=== PATIENT | male | born 1975 | race Caucasian/White ===

== ENCOUNTER 2018-06-25 05:46 | Inpatient (IN) | payer OTHER ==
[2018-06-25] VITALS (18 sets, daily range): BP systolic 78–122; BP diastolic 42–75
[~2018-06-25] VITALS: Ht 180.3 cm; Wt 80.7 kg
[~2018-06-25 05:46] MED LIST: NKM
[2018-06-25] MEDS ORDERED: Pantoprazole Inj ONE (06:25)
[2018-06-25] MEDS ORDERED: Vancomycin 1gm vial IVPB ONE (06:26)
[2018-06-25] MEDS ORDERED: Rocuronium Bromide 50mg/5ml Inj IV ONE (06:26)
[2018-06-25] MEDS ORDERED: Sodium Chloride 10ml vial INJ ONE ×2 (06:29→10:37)
[2018-06-25] MEDS ORDERED: Midazolam 2mg/2ml Inj IVP PRN (07:00)
[2018-06-25] MEDS ORDERED: oxyCODONE HCL/Acetaminophen 5/325mg ORAL PRN (07:00)
[2018-06-25] MEDS ORDERED: fentaNYL 100 mcg/2 mL IV PRN (07:00)
[2018-06-25] MEDS ORDERED: LORazepam Inj 2mg/ml 1ml IV PRN (07:00)
[2018-06-25] MEDS ORDERED: Ketorolac 30mg Inj IV PRN ×2 (07:00)
[2018-06-25] MEDS ORDERED: LR 1000ml 1,000 ML IVLG SCH (07:00)
[2018-06-25] MEDS ORDERED: DiphenhydrAMINE 50mg/ml Inj IVP PRN (07:00)
[2018-06-25] MEDS ORDERED: HYDROcodone/Acetamin 5/325 tab ORAL PRN ×2 (07:00→14:00)
[2018-06-25] MEDS ORDERED: Acetaminophen (Non formulary) 100 ML IV ONE (07:00)
[2018-06-25] MEDS ORDERED: HYDROcodone/Acetamin 7.5/325 tab ORAL PRN ×2 (07:00→14:00)
[2018-06-25] MEDS ORDERED: Meperidine 50mg/ml Inj(FOR RIGORS ONLY) IVP PRN (07:00)
[2018-06-25] MEDS ORDERED: Atropine Sulfate 0.4mg/ml inj IVP PRN (07:00)
[2018-06-25] MEDS ORDERED: Hydromorphone 0.5mg/0.5ml inj IVP PRN (07:00)
[2018-06-25] MEDS ORDERED: Metoclopramide 10mg/2ml Inj IVP PRN (07:00)
--- NOTE | 2018-06-25 07:06 | Anethesia Preoperative Eval ---
Anesthesia Pre-op PMH/ROS General Date of Evaluation: Jun 25, 2018 Time of Evaluation: 07:41 Anesthesiologist: Krystian ASA Score: ASA 2 Mallampati Score Class I : Soft palate, uvula, fauces, pillars visible Class II: Soft palate, uvula, fauces visible Class III: Soft palate, base of uvula visible Class IV: Only hard plate visible Mallampati Classification: Class II Surgeon: Ford Diagnosis: Neck Pain Surgical Procedure: ACDF C5-T1 Anesthesia History: none Family History: no anesthesia problems Allergies: Coded Allergies: No Known Allergies (Unverified , 06/24/18) Medications: see eMAR Patient NPO?: Yes NPO Date: Jun 24, 2018 NPO Time: 1800 Past Medical History 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 Exam Physician Exam Last Vital Signs Date Time Temp Pulse Resp B/P (MAP) Pulse Ox O2 Delivery O2 Flow Rate FiO2 06/25/18 06:45 97.8 77 20 112/75 (87) 99 06/25/18 06:17 Room Air Constitutional: NAD Neurologic: CN 2-12 intact Cardiovascular: RRR Respiratory: CTA Gastrointestinal: S/NT/ND Airway Exam Mallampati Score: Class II MO: full ROM: limited Teeth: intact Anesthesia Pre-op A/P Risk Assessment & Plan Assessment: ASA 2 Plan: GA, SED, GlideScope Go Status Change Before Surgery: No Pre-Antibiotics Dru Gram Vancomycin IV Given Within 1 Hr of Incision: Yes Time Given: 07:56 Dustin Barnett MD Jun 25, 2018 07:06
--- NOTE | 2018-06-25 07:07 | Immediate Post-Op Evaluation ---
Immediate Post-Op Evalulation Immediate Post-Op Evalulation Procedure: ACDF C5-T1 Date of Evaluation: Jun 25, 2018 Time of Evaluation: 13:35 IV Fluids: 700 LR Blood Products: 0 Estimated Blood Loss: 150 Urinary Output: 450 Blood Pressure Systolic: 117 Blood Pressure Diastolic: 65 Pulse Rate: 81 Respiratory Rate: 16 O2 Sat by Pulse Oximetry: 97 Temperature (Fahrenheit): 97.5 Pain Score (1-10): 2 Nausea: No Vomiting: No Complications Tongue Laceration with soft bite block in place. Repaired in OR. Patient Status: awake, reacts, patent, extubated, none Hydration Status: adequate Dru Gram Vancomycin IV Given Within 1 Hr of Incision: Yes Time Given: 07:56 Dustin Barnett MD Jun 25, 2018 07:07
[2018-06-25] MEDS ORDERED: Lidocaine 1% MPF 10mg/ml 5ml ONE ×2 (07:11→12:32)
[2018-06-25] MEDS ORDERED: Dexamethasone 4mg/ml vial ONE (07:11)
[2018-06-25] MEDS ORDERED: Lidocaine 1% Plain 30 ml INJ ONE ×3 (07:14→10:51)
[2018-06-25] MEDS ORDERED: Thrombin 5000 units TOPIC ONE (07:16)
[2018-06-25] MEDS ORDERED: Bupivacaine w/Epi 0.5% 30ml Vial INJ ONE (07:16)
[2018-06-25] MEDS ORDERED: Heparin 1000 units/ml 1ml Vial ONE (07:16)
[2018-06-25] MEDS ORDERED: Gelfoam Size TOPIC ONE (07:16)
[2018-06-25] MEDS ORDERED: Bacitracin 50000 Units Vial ONE (07:17)
[2018-06-25] MEDS ORDERED: Neostigmine 1mg/ml 10ml Inj ONE (07:45)
[2018-06-25] MEDS ORDERED: Propofol 1,000mg/ 100ml btl IV ONE (07:45)
[2018-06-25] MEDS ORDERED: LR 1000ml ONE (07:45)
--- NOTE | 2018-06-25 07:46 | Pre-Procedure Note/Attestation ---
Pre-Procedure Note/Attestation Complete Prior to Procedure Planned Procedure: bilateral Procedure Narrative: Anterior Cervical discectomy with interbody graft and arthrodesis with instrumentation at C56, C67 and C7-T1 with allograft, autograft and iliac crest bone marrow aspirate. Attestation I attest that I discussed the nature of the procedure; its benefits; risks and complications; and alternatives (and the risks and benefits of such alternatives ), prior to the procedure, with the patient (or the patient's legal patient services representative). I attest that, if there was a reasonable possibility of needing a blood transfusion, the patient (or the patient's legal patient services representative) was given the [place] [employer] standardized written summary, pursuant to the Jeb Ranjana Blood Safety Act ([place] Health and Safety Code # 1645, as amended). I attest that I re-evaluated the patient just prior to the surgery and that there has been no change in the patient's H&P, except as documented below: Prema Youngblood MD Jun 25, 2018 07:46
[2018-06-25] MEDS ORDERED: Bacitracin Oint 15gm Tube TOPIC ONE (08:00)
[2018-06-25] MEDS ORDERED: Vancomycin 500mg/D5W 110ml IVPB SCH ×2 (08:00)
[2018-06-25] MEDS ORDERED: Vancomycin 1gm/D5W 275ml IVPB ONE ×2 (08:00)
[2018-06-25] MEDS ORDERED: fentaNYL 100 mcg/2 mL IV ONE ×2 (08:21→10:59)
[2018-06-25] MEDS ORDERED: Pantoprazole Inj IVP ONE (11:00)
[2018-06-25] MEDS ORDERED: Glycopyrrolate 0.2mg/ml 1ml Vial ONE (11:54)
[2018-06-25] MEDS ORDERED: Naloxone 0.4mg/ml Inj ONE (12:32)
--- NOTE | 2018-06-25 12:51 | Diagnostic Imaging Report ---
INDICATION: Pain, intraoperative TECHNIQUE: Intraoperative imaging Fluoroscopy time: 34 seconds Total dose: 0.20411 mGym2 Total number of images: 6 COMPARISON: None FINDINGS: Intraoperative images demonstrates paper clip projected over the C5-6 disc. Subsequent images demonstrate surgical tool's projected anterior to C5-6 and C6-7 discs. Subsequent images demonstrate anterior fusion extending from C5 through T1 with intervening disc spacers IMPRESSION: Intraoperative imaging, as described
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
[2018-06-25] MEDS ORDERED: Milk of Magnesia 30ml Ud ORAL PRN (14:00)
[2018-06-25] MEDS ORDERED: Albuterol ud Inhalation ONE (14:12)
[2018-06-25] MEDS ORDERED: Albuterol/Ipratropium 3ml neb HHN SCH (14:17)
[2018-06-25] MEDS ORDERED: Piperacillin/Tazobactam 3.375 GM in D5W 110 ML IVPB SCH (15:00)
--- NOTE | 2018-06-25 15:02 | General Progress Note ---
Progress Note Progress Note Nuerosurgery Post-op S/ Comfortable. O/ Vs Sat 99% on FM Last 24 Hour Vital Signs Date Time Temp Pulse Resp B/P (MAP) Pulse Ox O2 Delivery O2 Flow Rate FiO2 06/25/18 14:35 95 16 104/64 97 Non-Rebreather 10 06/25/18 14:30 94 16 104/64 96 Simple Mask 10 06/25/18 14:15 94 16 105/68 96 Simple Mask 10 06/25/18 14:00 94 16 105/68 96 Simple Mask 10 06/25/18 13:45 88 16 104/65 96 Simple Mask 10 06/25/18 13:34 82 16 102/66 96 Simple Mask 10 06/25/18 13:31 81 16 97 06/25/18 13:29 79 16 104/66 96 Simple Mask 10 06/25/18 13:24 97.5 80 16 117/65 96 Simple Mask 10 06/25/18 06:45 97.8 77 20 112/75 (87) 99 06/25/18 06:17 Room Air Alert and oriented x 4 Moves all extremities well in c-collar Incisions are clean dry and intact right side of the tongue mild swelling no bleeding labs: ABG 7.299/pco2 7.45/Pao2 92 C-XR no pneumothorax. Infiltrate vs mass R upper/middle...reviewed with radiologist and press cleaner Cardio-resp stable. Received breathing treatment 99% saturation and fully oriented .. pt will be monitored in ICU Post-op IV Abx continue hung Patient family were updated several times by myself and Dr. Baca. Prema Youngblood MD Jun 25, 2018 15:02
[2018-06-25 15:14] LABS: ANION GAP 11 mmol/L (5-15); BLOOD UREA NITROGEN 23 mg/dL (7-18); CALCIUM 8.9 MG/DL (8.5-10.1); CARBON DIOXIDE 22 MMOL/L (21-32); CHLORIDE 104 MMOL/L (98-107); CREATININE 1.5 MG/DL (0.55-1.30); POTASSIUM 5.2 MMOL/L (3.5-5.1); SODIUM 137 MMOL/L (136-145)
[2018-06-25] MEDS: HYDROmorphone 1mg/ml Carpuject IVP PRN (15:45)
[2018-06-25] MEDS ORDERED: NS w/KCl 20mEq 1000ml 1,000 ML IV SCH (16:00)
--- NOTE | 2018-06-25 16:50 | Diagnostic Imaging Report ---
Indication: Postoperative shortness of breath Technique: One view of the chest Comparison: none Findings: Interstitial and airspace opacities are seen throughout the right midlung, extending slightly cephalad and inferior. A denser triangular opacity is seen in the right suprahilar region, measuring approximately 6.4 x 4.67 m. There is equivocal minimal interstitial prominence on the left. The pleural spaces are clear. The heart size is normal. There is evidence of prior cervical spine fusion surgery Impression: Interstitial and airspace opacities in the right lung. Given stated clinical history, could represent aspiration pneumonia, among other possibilities Right suprahilar opacity, likely reflecting dense consolidation but mass also possible. Recommend follow-up chest radiographs to resolution, consider CT should lesion failed to resolve Other findings as noted. Findings discussed by phone with Dr. Youngblood previously
--- NOTE | 2018-06-25 17:00 | NUR ---
NURSE NOTES: Report received from Dr Youngblood and Kandi RN. Pt sleepy but arousable, alert and oriented x3 and able to make needs known. Pt on monitoring tech, ST. Pt on 100% non-rebreather. Surgical incision on neck with soft cervical neck collar noted and intact. Dressing dry and not bleeding. Left hip dressing intact. Left 18 G IV intact. Tsai noted with clear yellow urine draining to gravity. Safety measures in place with bed locked and in lowest position and side rails x2 up. Will continue to monitor and continue plan of care.
[2018-06-25] MEDS: HYDROcodone/Acetamin 7.5/325 tab ORAL PRN ×2 (17:07→22:24)
[2018-06-25] MEDS: Docusate Sod/Senna tab ORAL SCH (17:43)
[2018-06-25] MEDS: Docusate 100mg cap ORAL SCH (17:43)
--- NOTE | 2018-06-25 18:58 | NUR ---
NURSE NOTES: Spoke to Dr Youngblood and Dr Baca regarding pt potassium level 5.2. Dr ordered to change IV fluid to plain NS. Will continue to monitor.
--- NOTE | 2018-06-25 19:14 | NUR ---
HAND-OFF: Report given to Jalen BULL.
--- NOTE | 2018-06-25 19:30 | NUR ---
NURSE NOTES: Received pt in no acute distress. Awake, alert, orientedx4; Moves all extremities. S/p Cervical spine fusion C5-T1 done earlier today. Pt on high gilbert's position; denies pains; denies SOB. On 100NRBM, saturating 98%. Chest sounds clear with diminished air entry at bases. 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 PIV site on left hand intact; IVF of NS infusing at 100ml/h. Afebrile; ST on the monitor, rate in the low 100's; Bilat SCD's on.FC patent; draining good amts of urine. Will continue to monitor respiratory status and address pain issues. Plan of care explained.
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
--- NOTE | 2018-06-25 20:00 | History and Physical Report ---
INTERNAL MEDICINE NOTE PATIENT SEEN IN PACU. DATE OF ADMISSION: 06/25/2018 HISTORY OF PRESENT ILLNESS: I was asked to evaluate the patient postop. This unfortunate male was admitted to the hospital to undergo anterior cervical diskectomy and fusion. The patient underwent surgery without any difficulty. Postoperatively, we noted that there was slight tongue laceration. On exam, it was bleeding and had a slight desaturation. He noted to have a right-sided infiltrate and haziness. No significant congestive heart failure. The patient was given oxygen and titrated to keep saturation greater than 94%. We started on vanc and Zosyn for possible aspiration pneumonitis. He was planning to be transferred to intensive care unit. EKG will be ordered on the patient. Chest x-ray will be followed monthly on this patient and the patient will get a CT of the chest. [facility] see my preop note. PHYSICAL EXAMINATION: VITAL SIGNS: Blood pressure 116/72, heart rate was 90, and saturation was 96% on 40% FiO2. NECK: Covered wiht neck brace HEART: S1 and S2. Regular rate. LUNGS: Left base has slight crackle. Right base have crackles throughout. ABDOMEN: Soft. Positive bowel sounds. EXTREMITIES: No clubbing or cyanosis. NEUROLOGICAL: He is alert and oriented and moves both of the lower extremities and upper extremity. IMPRESSION: 1. Status post anterior cervical diskectomy and fusion with likely aspiration pneumonitis. 2. Vancomycin as well as on Zosyn to cover for aspiration pneumonia. Oxygen will be given to the patient. If the patient desaturates, we will put for BiPAP and BiPAP has been placed by the bedside. If the patient worsens, BiPAP will be given to the patient. We will monitor the patient closely. 3. IV fluids will be given to the patient. IV antibiotics with vancomycin and Zosyn. 4. Pain medication with Dilaudid. Monitor the patient closely in intensive care unit. DVT prophylaxis with SCD. NPO for now except for medications. Case discussed with Dr. Youngblood. and the anesthesiologist. Kd Baca M.D. : ANIL JOB#: [id number] CC: Prema Youngblood M.D.; Fax#: [phone] [facility] HOSPITALJose De Jesus
[2018-06-25] MEDS: Vancomycin 1 GM in D5W 275 ML IVPB SCH (20:21)
--- NOTE | 2018-06-25 20:51 | Cardiology Progress Note ---
Assessment/Plan Status Narrative venous duouplex no DVT ekg reveiwed troponin is reveiwed will follow Assessment/Plan s/p cervical spine fusion post op hypoxia has aspiration pneumonia right sided infiltrate plan antibiotic for asp pneumonia vanco zosyn follow renal parameters incentive spirometry oxygen supplemnent atrovent HHN suction prn if worsen can place him on bipap but looks good for now ceck labs serial troponin antibiotic for asp pneumonia vanco zosyn follow renal parameters dvt prophyalxis Subjective Subjective doing well Objective Last 24 Hour Vital Signs Date Time Temp Pulse Resp B/P (MAP) Pulse Ox O2 Delivery O2 Flow Rate FiO2 06/25/18 20:13 Venturi Mask 4.0 31 06/25/18 20:13 94 Venturi Mask 4.0 31 06/25/18 19:00 98 30 115/70 (85) 98 06/25/18 18:00 108 29 102/71 (81) 95 06/25/18 18:00 Non-Rebreather 15.0 Non-Rebreather 15.0 Non-Rebreather 15.0 Non-Rebreather 15.0 06/25/18 17:00 112 26 78/42 (54) 96 06/25/18 16:30 Non-Rebreather 15.0 Non-Rebreather 15.0 Non-Rebreather 15.0 Non-Rebreather 15.0 06/25/18 16:00 98.0 103 27 96/70 (79) 96 06/25/18 14:45 97.0 98 16 122/70 96 Non-Rebreather 10 06/25/18 14:35 95 16 104/64 97 Non-Rebreather 10 06/25/18 14:30 94 16 104/64 96 Simple Mask 10 06/25/18 14:15 94 16 105/68 96 Simple Mask 10 06/25/18 14:00 94 16 105/68 96 Simple Mask 10 06/25/18 13:45 88 16 104/65 96 Simple Mask 10 06/25/18 13:34 82 16 102/66 96 Simple Mask 10 06/25/18 13:31 81 16 97 06/25/18 13:29 79 16 104/66 96 Simple Mask 10 06/25/18 13:24 97.5 80 16 117/65 96 Simple Mask 10 06/25/18 06:45 97.8 77 20 112/75 (87) 99 06/25/18 06:17 Room Air Neck: no JVD Cardiovascular: normal rate, regular rhythm Respiratory/Chest: lungs clear Abdomen: soft Laboratory Tests Test 06/25/18 14:40 06/25/18 14:45 Arterial Blood pH 7.299 (7.350-7.450) Arterial Blood Partial Pressure CO2 45.4 mmHg (35.0-45.0) H Arterial Blood Partial Pressure O2 92.1 mmHg (75.0-100.0) Arterial Blood HCO3 21.8 mmol/L (22.0-26.0) L Arterial Blood Oxygen Saturation 97.2 % (95-100) Arterial Blood Base Excess -4.8 (-2-2) L Sae Test Positive Sodium Level 137 MMOL/L (136-145) Potassium Level 5.2 MMOL/L (3.5-5.1) H Chloride Level 104 MMOL/L (98-107) Carbon Dioxide Level 22 MMOL/L (21-32) Anion Gap 11 mmol/L (5-15) Blood Urea Nitrogen 23 mg/dL (7-18) H Creatinine 1.5 MG/DL (0.55-1.30) H Estimat Glomerular Filtration Rate 51.6 mL/min (>60) Glucose Level 186 MG/DL (74-106) H Calcium Level 8.9 MG/DL (8.5-10.1) Troponin I 0.000 ng/mL (0.000-0.056) Objective wearingf a venti mask 40 opercent sat 95% percent has a neck brace heart s1,s2,tachy regualr rhonchi bilaterally Kd Baca MD Jun 25, 2018 20:51
--- NOTE | 2018-06-25 21:00 | NUR ---
NURSE NOTES: Dr Baca in to see pt. Ordered to downgrade 100%NRB to 40%VM and give breathing tx with Atrovent q4h and instruct on IS. RT informed.
[2018-06-25] MEDS: Ipratropium 0.02% Inh Soln 2.5ml UD HHN SCH (22:12)
--- NOTE | 2018-06-25 22:24 | NUR ---
NURSE NOTES: c/o neck pain; repositioned for comfort and gave [place] 2 tabs po. Pt able to swallow well. IV site patent. On ,40 VM; sts 95%
[2018-06-25] MEDS: Piperacillin/Tazobactam 3.375 GM in D5W 110 ML IVPB SCH (22:27)
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
[2018-06-26] VITALS (17 sets, daily range): BP systolic 100–115; BP diastolic 55–83
--- NOTE | 2018-06-26 | NUR ---
NURSE NOTES: Neuro checks done; speech clear, moves all extremities; no c/o any numbness of arms. Moves BLE purposefully. Afebrile. BP stable.
--- NOTE | 2018-06-26 02:00 | NUR ---
NURSE NOTES: Awake and wants to turn the SCD's off for a while. c/o being claustrophobic with O2 mask. Applied Nasal cannula at 3l/m. Will continue to monitor sats; denies SOB otherwise.
[2018-06-26] MEDS: Ipratropium 0.02% Inh Soln 2.5ml UD HHN SCH ×6 (03:20→23:00)
[2018-06-26 04:24] LABS: HEMATOCRIT 43.2 % (42.0-52.0); HEMOGLOBIN 14.9 G/DL (14.2-18.0); MEAN CORPUSCULAR VOLUME 90 FL (80-99); PLATELET COUNT 302 K/UL (150-450); RED BLOOD COUNT 4.78 M/UL (4.70-6.10); RED CELL DISTRIBUTION WIDTH 12.4 % (11.6-14.8)
[2018-06-26 04:40] LABS: WHITE BLOOD COUNT 25.5 K/UL (4.8-10.8)
[2018-06-26 04:47] LABS: ALANINE AMINOTRANSFERASE 28 U/L (12-78); ALBUMIN 3.3 G/DL (3.4-5.0); ALBUMIN/GLOBULIN RATIO 1.2 (1.0-2.7); ALKALINE PHOSPHATASE 62 U/L (46-116); ANION GAP 11 mmol/L (5-15); ASPARTATE AMINO TRANSFERASE 24 U/L (15-37); BILIRUBIN,TOTAL 1.1 MG/DL (0.2-1.0); BLOOD UREA NITROGEN 23 mg/dL (7-18); CALCIUM 8.5 MG/DL (8.5-10.1); CARBON DIOXIDE 25 MMOL/L (21-32); CHLORIDE 101 MMOL/L (98-107); CREATININE 1.4 MG/DL (0.55-1.30); POTASSIUM 4.5 MMOL/L (3.5-5.1); SODIUM 137 MMOL/L (136-145)
[2018-06-26 04:52] LABS: BILIRUBIN,DIRECT 0.2 MG/DL (0.0-0.3)
[2018-06-26] MEDS: HYDROcodone/Acetamin 7.5/325 tab ORAL PRN ×3 (04:59→21:54)
--- NOTE | 2018-06-26 05:00 | NUR ---
NURSE NOTES: c/o neck pain; repositioned; soft neck collar remains in place. [place] 2 tabs given po. Denies SOB. AM care offered but pt declined at this time
--- NOTE | 2018-06-26 06:23 | NUR ---
NURSE NOTES: WBC of 25.[address] Baca. No new orders
[2018-06-26] MEDS: Piperacillin/Tazobactam 3.375 GM in D5W 110 ML IVPB SCH ×2 (06:47→17:19)
--- NOTE | 2018-06-26 07:20 | NUR ---
HAND-OFF: Report given to Leandra Henderson RN.
--- NOTE | 2018-06-26 07:25 | NUR ---
NURSE NOTES: Report received from Makenzie Monet RN.Pt resting quistly in bed awake,noted no resp distress on 3L NC,no signs of pain or discomfort,SR on the monitor,pt s/p cervical spine fusion with soft collar to neck in placed,skin warm and dry,IV site to LH intact with IVF running NS at 100 ml/hr, SR up x2 HOB elevated bed lock in lowest position,will continue with plan of care.
--- NOTE | 2018-06-26 08:27 | Consultation ---
History of Present Illness General Date patient seen: Jun 26, 2018 Time patient seen: 08:23 Present Illness Allergies: Coded Allergies: No Known Allergies (Unverified , 06/24/18) Medication History Scheduled No Known Medications* (NKM - No Known Medications*), 0 ., (Reported) Patient History Healthcare decision maker ANDER- Resuscitation status Full Code Advanced Directive on File No Review of Systems ROS Narrative doing better using incentive spirometry nursing stff inthe ICU has been monitoring him and over night had few phonme calls with them no palpiaiton sating on nasal canula 100% Physical Exam General Appearance: WD/WN HEENT: normocephalic Neck: other - has a neck brace Respiratory/Chest: rhonchi - left, rhonchi - right Cardiovascular/Chest: normal rate, regular rhythm Abdomen: non tender, soft Extremities: other - no edema Last 24 Hour Vital Signs Date Time Temp Pulse Resp B/P (MAP) Pulse Ox O2 Delivery O2 Flow Rate FiO2 06/26/18 07:22 72 18 99 Nasal Cannula 2.0 28 06/26/18 07:16 99 Nasal Cannula 2.0 28 06/26/18 07:16 Nasal Cannula 2.0 28 06/26/18 07:16 72 18 99 Nasal Cannula 2.0 28 06/26/18 06:00 83 24 106/60 (75) 97 06/26/18 05:00 93 23 114/62 (79) 96 06/26/18 04:00 98.8 83 22 102/59 (73) 97 06/26/18 04:00 86 06/26/18 04:00 Nasal Cannula 3.0 06/26/18 03:21 88 18 99 Venturi Mask 4.0 31 06/26/18 03:10 86 18 98 Venturi Mask 4.0 31 06/26/18 03:00 86 22 100/64 (76) 96 06/26/18 02:00 93 19 108/61 (77) 96 06/26/18 01:00 92 24 105/62 (76) 95 92 06/26/18 00:00 93 06/26/18 00:00 97.6 94 25 108/61 (77) 94 94 06/26/18 00:00 Venturi Mask 6.0 06/25/18 23:00 101 22 106/63 (77) 94 101 06/25/18 22:17 95 18 Venturi Mask 4.0 31 06/25/18 22:14 96 18 97 Venturi Mask 4.0 31 06/25/18 22:02 95 18 95 Venturi Mask 4.0 31 06/25/18 22:00 101 25 94/66 (75) 92 101 06/25/18 21:00 104 25 110/62 (78) 92 104 06/25/18 20:13 Venturi Mask 4.0 31 06/25/18 20:13 94 Venturi Mask 4.0 31 06/25/18 20:00 Venturi Mask 6.0 06/25/18 20:00 98.7 109 23 102/72 (82) 94 109 06/25/18 20:00 104 06/25/18 19:00 98 30 115/70 (85) 98 06/25/18 18:00 108 29 102/71 (81) 95 06/25/18 18:00 Non-Rebreather 15.0 Non-Rebreather 15.0 Non-Rebreather 15.0 Non-Rebreather 15.0 06/25/18 17:00 112 26 78/42 (54) 96 06/25/18 16:30 Non-Rebreather 15.0 Non-Rebreather 15.0 Non-Rebreather 15.0 Non-Rebreather 15.0 06/25/18 16:00 98.0 103 27 96/70 (79) 96 06/25/18 14:45 97.0 98 16 122/70 96 Non-Rebreather 10 06/25/18 14:35 95 16 104/64 97 Non-Rebreather 10 06/25/18 14:30 94 16 104/64 96 Simple Mask 10 06/25/18 14:15 94 16 105/68 96 Simple Mask 10 06/25/18 14:00 94 16 105/68 96 Simple Mask 10 06/25/18 13:45 88 16 104/65 96 Simple Mask 10 06/25/18 13:34 82 16 102/66 96 Simple Mask 10 06/25/18 13:31 81 16 97 06/25/18 13:29 79 16 104/66 96 Simple Mask 10 06/25/18 13:24 97.5 80 16 117/65 96 Simple Mask 10 Intake and Output 06/25/18 06/26/18 18:59 06:59 Intake Total 1100 ml 2225.0 ml Output Total 750 ml 1135 ml Balance 350 ml 1090.0 ml Intake Oral 300 ml 840 ml IV Total 800 ml 1385.0 ml Output Urine Total 600 ml 1135 ml Estimated Blood Loss 150 ml Laboratory Tests Test 06/25/18 14:40 06/25/18 14:45 06/25/18 21:30 06/26/18 04:00 Arterial Blood pH 7.299 (7.350-7.450) Arterial Blood Partial Pressure CO2 45.4 mmHg (35.0-45.0) H Arterial Blood Partial Pressure O2 92.1 mmHg (75.0-100.0) Arterial Blood HCO3 21.8 mmol/L (22.0-26.0) L Arterial Blood Oxygen Saturation 97.2 % (95-100) Arterial Blood Base Excess -4.8 (-2-2) L Sae Test Positive Sodium Level 137 MMOL/L (136-145) 137 MMOL/L (136-145) Potassium Level 5.2 MMOL/L (3.5-5.1) H 4.5 MMOL/L (3.5-5.1) Chloride Level 104 MMOL/L (98-107) 101 MMOL/L (98-107) Carbon Dioxide Level 22 MMOL/L (21-32) 25 MMOL/L (21-32) Anion Gap 11 mmol/L (5-15) 11 mmol/L (5-15) Blood Urea Nitrogen 23 mg/dL (7-18) H 23 mg/dL (7-18) H Creatinine 1.5 MG/DL (0.55-1.30) H 1.4 MG/DL (0.55-1.30) H Estimat Glomerular Filtration Rate 51.6 mL/min (>60) 55.8 mL/min (>60) Glucose Level 186 MG/DL (74-106) H 143 MG/DL (74-106) H Calcium Level 8.9 MG/DL (8.5-10.1) 8.5 MG/DL (8.5-10.1) Troponin I 0.000 ng/mL (0.000-0.056) 0.006 ng/mL (0.000-0.056) 0.006 ng/mL (0.000-0.056) White Blood Count 25.5 K/UL (4.8-10.8) *H Red Blood Count 4.78 M/UL (4.70-6.10) Hemoglobin 14.9 G/DL (14.2-18.0) Hematocrit 43.2 % (42.0-52.0) Mean Corpuscular Volume 90 FL (80-99) Mean Corpuscular Hemoglobin 31.1 PG (27.0-31.0) H Mean Corpuscular Hemoglobin Concent 34.4 G/DL (32.0-36.0) Red Cell Distribution Width 12.4 % (11.6-14.8) Platelet Count 302 K/UL (150-450) Mean Platelet Volume 5.9 FL (6.5-10.1) L Neutrophils (%) (Auto) % (45.0-75.0) Lymphocytes (%) (Auto) % (20.0-45.0) Monocytes (%) (Auto) % (1.0-10.0) Eosinophils (%) (Auto) % (0.0-3.0) Basophils (%) (Auto) % (0.0-2.0) Neutrophils % (Manual) Pending Lymphocytes % (Manual) Pending Platelet Estimate Pending Platelet Morphology Pending Total Bilirubin 1.1 MG/DL (0.2-1.0) H Direct Bilirubin 0.2 MG/DL (0.0-0.3) Aspartate Amino Transf (AST/SGOT) 24 U/L (15-37) Alanine Aminotransferase (ALT/SGPT) 28 U/L (12-78) Alkaline Phosphatase 62 U/L (46-116) Total Protein 6.1 G/DL (6.4-8.2) L Albumin 3.3 G/DL (3.4-5.0) L Globulin 2.8 g/dL Albumin/Globulin Ratio 1.2 (1.0-2.7) Height (Feet): 5 Height (Inches): 11.00 Weight (Pounds): 178 Medications Current Medications Medications (Trade) Dose Ordered Sig/Thom Route PRN Reason Start Time Stop Time Status Last Admin Dose Admin Acetaminophen (Tylenol) 650 mg Q4H PRN ORAL headache or temp>101 06/25/18 14:00 07/25/18 13:59 Acetaminophen (Tylenol) 650 mg Q6H PRN ORAL Mild Pain (Pain Scale 1-3) 06/25/18 14:00 07/25/18 13:59 Acetaminophen/ Hydrocodone Bitart ([place] 5/325) 1 tab Q3H PRN ORAL pain score 1-3 06/25/18 14:00 07/02/18 13:59 Acetaminophen/ Hydrocodone Bitart ([place] 7.5/325) 1 tab Q3H PRN ORAL pain score 4-6 06/25/18 14:00 07/02/18 13:59 Acetaminophen/ Hydrocodone Bitart ([place] 7.5/325) 2 tab Q3H PRN ORAL pain scale 7-10 06/25/18 14:00 07/02/18 13:59 06/26/18 04:59 Docusate Sodium (Colace) 100 mg TWICE A DAY ORAL 06/25/18 18:00 07/25/18 17:59 Hydromorphone HCl (Dilaudid) 0.5 mg Q2H PRN IVP Breakthrough Pain 06/25/18 14:00 07/02/18 13:59 06/25/18 15:45 Ipratropium [place] (Atrovent) 500 mcg Q4HRT HHN 06/25/18 23:00 06/30/18 22:59 06/26/18 07:16 Magnesium Hydroxide (Mom) 30 ml QIDPRN PRN ORAL Constipation 06/25/18 14:00 07/25/18 13:59 Ondansetron HCl (Zofran) 4 mg Q6H PRN IVP Nausea & Vomiting 06/25/18 14:00 07/25/18 13:59 Piperacillin Sod/ Tazobactam Sod 3.375 gm/Dextrose 110 ml @ 27.5 mls/hr Q8H IVPB 06/25/18 23:00 07/02/18 22:59 06/26/18 06:47 Senna/Docusate Sodium (Grsiel-Colace) 1 tab TWICE A DAY ORAL 06/25/18 18:00 07/25/18 17:59 Sodium Chloride 1,000 ml @ 100 mls/hr Q10H IV 06/25/18 19:00 07/25/18 18:59 06/26/18 04:58 Vancomycin HCl (Vanco rx to dose) 1 ea DAILY PRN MISC PER PHARMACY 06/25/18 16:15 07/25/18 16:14 Vancomycin HCl 1 gm/Dextrose 275 ml @ 183.3 mls/ hr Q12H IVPB 06/25/18 20:00 06/26/18 09:00 06/25/18 20:21 Vancomycin HCl 1 gm/Dextrose 275 ml @ 183.3 mls/ hr Q12H IVPB 06/26/18 20:00 07/01/18 19:59 Assessment/Plan Status Narrative s/p complex anterior cervical spine fusion aspiratin pneumonia doing better strress leukocytosis monitor closley Assessment/Plan continue withvanco zosyn will get chest ct much improved doing better dvt prophyalxis pain control dasha can go to the floor if continues to improve. no need to use bipap last night. Kd Bcaa MD Jun 26, 2018 08:27
--- NOTE | 2018-06-26 08:53 | General Progress Note ---
Progress Note Progress Note Neurosurgery POD #1 S/ Comfortable. Able to tolerate full liquid diet. Minimal tongue discomfort. Increased sensation in th eright upper extremity O/ VS: Last 24 Hour Vital Signs Date Time Temp Pulse Resp B/P (MAP) Pulse Ox O2 Delivery O2 Flow Rate FiO2 06/26/18 07:22 72 18 99 Nasal Cannula 2.0 28 06/26/18 07:16 99 Nasal Cannula 2.0 28 06/26/18 07:16 Nasal Cannula 2.0 28 06/26/18 07:16 72 18 99 Nasal Cannula 2.0 28 06/26/18 06:00 83 24 106/60 (75) 97 06/26/18 05:00 93 23 114/62 (79) 96 06/26/18 04:00 98.8 83 22 102/59 (73) 97 06/26/18 04:00 86 06/26/18 04:00 Nasal Cannula 3.0 06/26/18 03:21 88 18 99 Venturi Mask 4.0 31 06/26/18 03:10 86 18 98 Venturi Mask 4.0 31 06/26/18 03:00 86 22 100/64 (76) 96 06/26/18 02:00 93 19 108/61 (77) 96 06/26/18 01:00 92 24 105/62 (76) 95 92 06/26/18 00:00 93 06/26/18 00:00 97.6 94 25 108/61 (77) 94 94 06/26/18 00:00 Venturi Mask 6.0 06/25/18 23:00 101 22 106/63 (77) 94 101 06/25/18 22:17 95 18 Venturi Mask 4.0 31 06/25/18 22:14 96 18 97 Venturi Mask 4.0 31 06/25/18 22:02 95 18 95 Venturi Mask 4.0 31 06/25/18 22:00 101 25 94/66 (75) 92 101 06/25/18 21:00 104 25 110/62 (78) 92 104 06/25/18 20:13 Venturi Mask 4.0 31 06/25/18 20:13 94 Venturi Mask 4.0 31 06/25/18 20:00 Venturi Mask 6.0 06/25/18 20:00 98.7 109 23 102/72 (82) 94 109 06/25/18 20:00 104 06/25/18 19:00 98 30 115/70 (85) 98 06/25/18 18:00 108 29 102/71 (81) 95 06/25/18 18:00 Non-Rebreather 15.0 Non-Rebreather 15.0 Non-Rebreather 15.0 Non-Rebreather 15.0 06/25/18 17:00 112 26 78/42 (54) 96 06/25/18 16:30 Non-Rebreather 15.0 Non-Rebreather 15.0 Non-Rebreather 15.0 Non-Rebreather 15.0 06/25/18 16:00 98.0 103 27 96/70 (79) 96 06/25/18 14:45 97.0 98 16 122/70 96 Non-Rebreather 10 06/25/18 14:35 95 16 104/64 97 Non-Rebreather 10 06/25/18 14:30 94 16 104/64 96 Simple Mask 10 06/25/18 14:15 94 16 105/68 96 Simple Mask 10 06/25/18 14:00 94 16 105/68 96 Simple Mask 10 06/25/18 13:45 88 16 104/65 96 Simple Mask 10 06/25/18 13:34 82 16 102/66 96 Simple Mask 10 06/25/18 13:31 81 16 97 06/25/18 13:29 79 16 104/66 96 Simple Mask 10 06/25/18 13:24 97.5 80 16 117/65 96 Simple Mask 10 On 2l NC 98% saturation. RR 18 Pulse 71 BP 101/70 Comfortable. Alert and oriented Incisions are Clean/dry and intact Moves all extremities well Tongue shows minimal to no swelling. Well healed Normal voice. No evidence of vocal cord dysfuntion Laboratory Tests Test 06/25/18 14:40 06/25/18 14:45 06/25/18 21:30 06/26/18 04:00 Arterial Blood pH 7.299 (7.350-7.450) Arterial Blood Partial Pressure CO2 45.4 mmHg (35.0-45.0) H Arterial Blood Partial Pressure O2 92.1 mmHg (75.0-100.0) Arterial Blood HCO3 21.8 mmol/L (22.0-26.0) L Arterial Blood Oxygen Saturation 97.2 % (95-100) Arterial Blood Base Excess -4.8 (-2-2) L Sae Test Positive Sodium Level 137 MMOL/L (136-145) 137 MMOL/L (136-145) Potassium Level 5.2 MMOL/L (3.5-5.1) H 4.5 MMOL/L (3.5-5.1) Chloride Level 104 MMOL/L (98-107) 101 MMOL/L (98-107) Carbon Dioxide Level 22 MMOL/L (21-32) 25 MMOL/L (21-32) Anion Gap 11 mmol/L (5-15) 11 mmol/L (5-15) Blood Urea Nitrogen 23 mg/dL (7-18) H 23 mg/dL (7-18) H Creatinine 1.5 MG/DL (0.55-1.30) H 1.4 MG/DL (0.55-1.30) H Estimat Glomerular Filtration Rate 51.6 mL/min (>60) 55.8 mL/min (>60) Glucose Level 186 MG/DL (74-106) H 143 MG/DL (74-106) H Calcium Level 8.9 MG/DL (8.5-10.1) 8.5 MG/DL (8.5-10.1) Troponin I 0.000 ng/mL (0.000-0.056) 0.006 ng/mL (0.000-0.056) 0.006 ng/mL (0.000-0.056) White Blood Count 25.5 K/UL (4.8-10.8) *H Red Blood Count 4.78 M/UL (4.70-6.10) Hemoglobin 14.9 G/DL (14.2-18.0) Hematocrit 43.2 % (42.0-52.0) Mean Corpuscular Volume 90 FL (80-99) Mean Corpuscular Hemoglobin 31.1 PG (27.0-31.0) H Mean Corpuscular Hemoglobin Concent 34.4 G/DL (32.0-36.0) Red Cell Distribution Width 12.4 % (11.6-14.8) Platelet Count 302 K/UL (150-450) Mean Platelet Volume 5.9 FL (6.5-10.1) L Neutrophils (%) (Auto) % (45.0-75.0) Lymphocytes (%) (Auto) % (20.0-45.0) Monocytes (%) (Auto) % (1.0-10.0) Eosinophils (%) (Auto) % (0.0-3.0) Basophils (%) (Auto) % (0.0-2.0) Differential Total Cells Counted 100 Neutrophils % (Manual) 78 % (45-75) H Lymphocytes % (Manual) 6 % (20-45) L Monocytes % (Manual) 4 % (1-10) Eosinophils % (Manual) 0 % (0-3) Basophils % (Manual) 0 % (0-2) Band Neutrophils 12 % (0-8) H Platelet Estimate Adequate Platelet Morphology Normal Red Blood Cell Morphology Normal Total Bilirubin 1.1 MG/DL (0.2-1.0) H Direct Bilirubin 0.2 MG/DL (0.0-0.3) Aspartate Amino Transf (AST/SGOT) 24 U/L (15-37) Alanine Aminotransferase (ALT/SGPT) 28 U/L (12-78) Alkaline Phosphatase 62 U/L (46-116) Total Protein 6.1 G/DL (6.4-8.2) L Albumin 3.3 G/DL (3.4-5.0) L Globulin 2.8 g/dL Albumin/Globulin Ratio 1.2 (1.0-2.7) 1. s/p C5 - T1 ACDF improved right upper extremity exam 2. Advance diet as tolerated after clearance by speech eval 3. PT 4. Respiratory - C-XR follow-up 5. Internal medicine follow-up appreciated 6. Doing much better. 7. Transfer to Med surg as tolerated Prema Youngblood MD Jun 26, 2018 08:53
[2018-06-26] MEDS: Docusate 100mg cap ORAL SCH (09:07)
[2018-06-26] MEDS: Docusate Sod/Senna tab ORAL SCH ×2 (09:07→18:14)
[2018-06-26] MEDS: Vancomycin 1 GM in D5W 275 ML IVPB SCH (09:07)
--- NOTE | 2018-06-26 09:08 | Cardiology Report ---
APPROVED REPORT EXAM: Two-dimensional and M-mode echocardiogram with Doppler and color Doppler. INDICATION POST-OP M-Mode DIMENSIONS IVSd0.9 (0.7-1.1cm)Left Atrium (MM)2.6 (1.6-4.0cm) LVDd4.2 (3.5-5.6cm)Aortic Root3.2 (2.0-3.7cm) PWd0.5 (0.7-1.1cm)Aortic Cusp Exc.1.7 (1.5-2.0cm) IVSs1.2 cm LVDs2.9 (2.5-4.0cm) PWs1.1 cm Normal left ventricular chamber size, systolic function and wall motion . Left ventricular ejection fraction estimated to be 55% No evidence of left ventricular hypertrophy . No evidence of pericardial effusion . All other cardiac chamber sizes are within normal limits. Focal aortic valve sclerosis with adequate cusp excursion. Thickened mitral valve leaflets with normal cusp excursion. Mitral annulus and aortic root calcification. Pulmonic valve not well visualized. IVC at normal size with physiologic collapse . A color flow and spectral Doppler study was performed and revealed: No aortic insufficiency . Normal left ventricular diastolic function . Trace mitral regurgitation. Trace tricuspid regurgitation. Tricuspid systolic velocities suggests peak right ventricular systolic pressure of 11mmHg.
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
--- NOTE | 2018-06-26 09:54 | NUR ---
RADIOLOGY DEPT CHEST X-RAY DONE.-P.DYE
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
--- NOTE | 2018-06-26 10:48 | NUR ---
P.T Note: P.T evaluation/tx on hold at this time. Pt was transferred to ICU. Awaiting for MD clearance to resume P.T evaluation/tx.
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
--- NOTE | 2018-06-26 11:05 | NUR ---
HAND-OFF: Report given to Darby Braswell RN.Pt resting in bed no further c/o pain presented,family members at bedside..
--- NOTE | 2018-06-26 11:10 | NUR ---
NURSE NOTES: Patient received from JORGITO Bettencourt. Patient observed to be awake, alert and oriented x 4. Patient is not in any acute distress. Family is a bedside. Patient is s/p cervical spine fusion C5-T1 and is sitting high fowlers with soft neck collar. Patient denies pain or SOB. Patient is being monitored on the apprentice pattern maker VS 111/62, HR 74, RR 19 SPO2 99%. Patient is on 2L NC and upon auscultation, chest sounds are clear however diminished at the bases. Patient has a single IV running NS at 100 ml/hr. Patient is afebrile. Patient is with BL SCD's. Patient has Tsai Catheter draining good amounts of urine to gravity. Will continue to monitor and follow plan of care.
--- NOTE | 2018-06-26 12:10 | Diagnostic Imaging Report ---
Clinical Indication: Postoperative shortness of breath and desaturation Technique: Spiral acquisitions obtained through the chest. No IV contrast utilized, per referring physician request. Multiplanar reconstructions generated. Total dose length product 777.58 mGycm. CTDIvol(s) 21.75 mGy. Dose reduction achieved using automated exposure control Comparison: Reference made to chest radiograph of earlier the same day Findings: Groundglass and fluffy airspace opacities are seen throughout most of the right upper lobe. Similar less extensive opacities are seen within the left upper lobe. Airspace opacities are also seen in the right middle lobe, less extensive the denser than in the upper lobe. There is variant anatomy with what appears to be a minor fissure present on the left and therefore a left middle lobe. This contains opacities that are similar to those seen elsewhere, slightly less extensive. Similar opacities and also areas of dense consolidation and atelectasis are seen in the lower lobes bilaterally, right greater than left. There is trace pleural fluid on the right. No definite left pleural effusion. A densely calcified nodule is seen within the right middle lobe, presumably postinflammatory in nature. No parenchymal findings are seen that would correspond with the right suprahilar masslike opacity seen on previous day's chest radiograph. Note, however, that that finding has largely resolved on the chest radiograph performed immediately prior to this study The heart size is normal. No pericardial effusion. No mediastinal or hilar mass or adenopathy. The included portion of the thyroid is unremarkable. No axillary or chest wall mass or adenopathy. The bones demonstrate surgical fusion hardware in the anterior upper thoracic and lower cervical spine. Ventriculoperitoneal shunt tubing courses along the right chest wall. A few gas bubbles are seen in the right supraclavicular region. The included upper abdominal anatomy demonstrates a cyst in segment 5 of the liver. Impression: Bilateral diffuse and extensive, right greater than left, parenchymal opacities, as described. Findings most likely represent pneumonia, and distribution likely reflects suspected clinical history of aspiration pneumonia. Pulmonary airspace edema also a possibility but deemed less likely. Correlation with clinical findings is recommended No findings responding to apparent masslike opacity on previous day's chest radiograph; that finding has resolved on most recent chest radiograph and most likely reflected some atelectasis that has since resolved Note unusual variant anatomy of a left middle lobe Post surgical changes of the upper thoracic and lower cervical spine. Gas bubbles in the right supraclavicular region probably related to the prior surgical exposure Incidental finding of right lobe liver cyst Granulomatous calcification in the right middle lobe, presumably postinflammatory, may reflect old granulomatous disease The CT scanner at [facility] is accredited by the [employer] and the scans are performed using protocols designed to limit radiation exposure to as low as reasonably achievable to attain images of sufficient resolution adequate for diagnostic evaluation.
--- NOTE | 2018-06-26 12:12 | 48 Hour Post Anesthesia Eval ---
Post Anesthesia Evaluation Procedure: ACDF C5-T1 Date of Evaluation: Jun 26, 2018 Time of Evaluation: 12:00 Blood Pressure Systolic: 111 0: 60 Pulse Rate: 70 Respiratory Rate: 18 O2 Sat by Pulse Oximetry: 100 Airway: patent Nausea: No Vomiting: No Pain Intensity: 0 Hydration Status: adequate Cardiopulmonary Status: patient with possible aspiration pneumonia. AAOx4, stable on NC with 100% saturation. No signs of CHF. On vanco and zosyn. Continue to monitor. Mental Status/LOC: patient returned to baseline Follow-up care needed: N/A - further care as per primary team Jaimie Nugent MD Jun 26, 2018 12:12
--- NOTE | 2018-06-26 14:24 | NUR ---
NURSE NOTES: Patient was evaluated by PT. Patient up and walked without any issues. Prior to the getting out of bed, full neuro assessment was performed, patient stated the right side continues to improve on entire right side with R UE and R LE. Patient is symmetric with puff cheek, pupils are PERRLA and equal on strength on BUE with 3/5 and BLE with 4/5 in muscle strength. Patient had a no issues with gait and imbalance while walking. Patient now asking for pain meds. Will assess pain. Will continue to monitor.
[2018-06-26] MEDS: HYDROmorphone 1mg/ml Carpuject IVP PRN (14:38)
--- NOTE | 2018-06-26 14:43 | Diagnostic Imaging Report ---
Indication: Cough Technique: One view of the chest Comparison: 06/25/2018 Findings: Interstitial and airspace opacities, predominantly the latter, are again demonstrated throughout much of the right lung. Previously demonstrated dense right suprahilar opacity has resolved. There is increased infiltrate at the left lung base. The pleural spaces remain clear. Cervical spine fusion hardware again noted Impression: Persistent right and increased left basilar mostly airspace opacities. Most likely infectious/inflammatory and in keeping with stated clinical history of suspected aspiration pneumonia Previously demonstrated right suprahilar opacity has resolved. This may reflect interim resolution of an area of atelectasis or dense consolidation
--- NOTE | 2018-06-26 15:14 | NUR ---
P.T Note: Order to resume P.T evaluation/tx received. P.T evaluation completed and tx initiated per spinal protocol. Pt tolerated P.T evaluation/tx well, vitals were stable althrough out P.T session. Please refer to P.T evaluation for current functional status. Skilled P.T service is warranted to ensure safety and compliance for spinal precautions in performing functional mobility/activities. Thank you for this referral.
--- NOTE | 2018-06-26 16:40 | NUR ---
NURSE NOTES: Received patient from ICU charge nurse. All belongings were checked with two nurses. Patient a/o x4. Denies any pain at this time. No respiratory discomfort noted. Unit orientation was given. Lt. hand IV is patent. Bed in lowest position and call light within reach. Will continue to monitor.
--- NOTE | 2018-06-26 17:30 | NUR ---
NURSE NOTES: Patient's IV Zosyn NOT given due to response to DECORATING EQUIPMENT SETTER on another unit before transfer. Will endorse to new RN taken over patient's care.
--- NOTE | 2018-06-26 17:30 | NUR ---
NURSE NOTES: Got the report from Xenia SHIPFITTERS SUPERVISOR.
--- NOTE | 2018-06-26 17:40 | NUR ---
HAND-OFF: Report given to JORGITO Tello. Report given via telephone. steel pickler transferred patient and gave bedside report. RN gave report and endorsed that Zosyn was not given due to SENIOR INTERNET SALES CONSULTANT.
[2018-06-26] MEDS ORDERED: HYDROcodone/Acetamin 5/325 tab ORAL PRN (18:00)
[2018-06-26] MEDS ORDERED: Docusate 100mg cap ORAL SCH (18:00)
[2018-06-26] MEDS ORDERED: Milk of Magnesia 30ml Ud ORAL PRN (18:00)
[2018-06-26] MEDS: Hydromorphone 0.5mg/0.5ml inj IVP PRN (18:15)
--- NOTE | 2018-06-26 19:35 | NUR ---
HAND-OFF: Report given to JORGITO Spencer.
--- NOTE | 2018-06-26 19:45 | NUR ---
NURSE NOTES: Pt lying in bed w/family at bedside, bed in lowest position, and call light within reach. Pt A&Ox4; VSS; on 2L NC; and in no apparent distress. IV site intact/asymptomatic w/IVF @ 100 ml/hr and dressing C/D/I w/soft cervical collar in place. Will continue to monitor.
[2018-06-26] MEDS ORDERED: Vancomycin 1 GM in D5W 275 ML IVPB SCH ×4 (20:00)
[2018-06-26] MEDS: Vancomycin 1gm/D5W 275ml IVPB SCH ×2 (21:45)
--- NOTE | 2018-06-26 22:47 | Cardiac Electrophysiology PN ---
Assessment/Plan Status Narrative echo noraml ef no wall motion abnormality venous douplex no dvt wbc [address] chest: Impression: Bilateral diffuse and extensive, right greater than left, parenchymal opacities, as described. Findings most likely represent pneumonia, and distribution likely reflects suspected clinical history of aspiration pneumonia. Pulmonary airspace edema also a possibility but deemed less likely. Correlation with clinical findings is recommended No findings responding to apparent masslike opacity on previous day's chest radiograph; that finding has resolved on most recent chest radiograph and most likely reflected some atelectasis that has since resolved Note unusual variant anatomy of a left middle lobe Post surgical changes of the upper thoracic and lower cervical spine. Gas bubbles in the right supraclavicular region probably related to the prior surgical exposure Incidental finding of right lobe liver cyst Granulomatous calcification in the right middle lobe, presumably postinflammatory, may reflect old granulomatous disease The CT scanner at [facility] is accredited by the [employer] and the scans are performed using protocols designed to limit radiation exposure to as low as reasonably achievable to attain images of sufficient resolution adequate for diagnostic evaluation. impression: s/p complex anterior cervical spine fusion c5-t1 aspiration pneumonia Assessment/Plan PLAN: antibioitc broad spectrum with vanco and zosyn follow bun and creatinine atrovent HHN oxygen nasal canula will follow up chest xray the ches txzray may lag for 3 weeks will require follow upchest xray as outpatinet for resolution of the infiltrate ct scan chest no pulmonary mass, abbarent middle lobe structure bialteral pneumonia and ? granulomatous disease dvt prophyalxis paincontrol Subjective Subjective more alert not coughing no ches tpain no sob on the med surg floor now Objective Last 24 Hour Vital Signs Date Time Temp Pulse Resp B/P (MAP) Pulse Ox O2 Delivery O2 Flow Rate FiO2 06/26/18 21:06 99 Nasal Cannula 2.0 28 06/26/18 21:06 Nasal Cannula 2.0 28 06/26/18 21:05 74 20 99 Nasal Cannula 2.0 28 06/26/18 20:51 70 20 98 Nasal Cannula 2.0 28 06/26/18 15:22 73 18 99 Nasal Cannula 2.0 28 06/26/18 15:09 69 20 98 Nasal Cannula 2.0 28 06/26/18 15:00 88 15 106/62 (77) 99 06/26/18 14:00 98.1 75 20 111/83 (92) 97 06/26/18 13:00 75 20 108/66 (80) 99 06/26/18 12:12 70 18 100 06/26/18 12:00 70 06/26/18 12:00 Nasal Cannula 3.0 06/26/18 12:00 70 20 112/61 (78) 99 06/26/18 11:00 81 20 111/62 (78) 99 06/26/18 10:55 70 18 100 Nasal Cannula 2.0 28 06/26/18 10:50 65 18 99 Nasal Cannula 2.0 28 06/26/18 10:00 80 24 106/55 (72) 06/26/18 09:00 82 22 107/70 (82) 06/26/18 08:00 Nasal Cannula 3.0 06/26/18 08:00 78 22 103/63 (76) 97 06/26/18 08:00 83 06/26/18 07:22 72 18 99 Nasal Cannula 2.0 28 06/26/18 07:16 99 Nasal Cannula 2.0 28 06/26/18 07:16 Nasal Cannula 2.0 28 06/26/18 07:16 72 18 99 Nasal Cannula 2.0 28 06/26/18 07:00 98.0 85 24 100/58 (72) 98 06/26/18 06:00 83 24 106/60 (75) 97 06/26/18 05:00 93 23 114/62 (79) 96 06/26/18 04:00 98.8 83 22 102/59 (73) 97 06/26/18 04:00 86 06/26/18 04:00 Nasal Cannula 3.0 06/26/18 03:21 88 18 99 Venturi Mask 4.0 31 06/26/18 03:10 86 18 98 Venturi Mask 4.0 31 06/26/18 03:00 86 22 100/64 (76) 96 06/26/18 02:00 93 19 108/61 (77) 96 06/26/18 01:00 92 24 105/62 (76) 95 92 06/26/18 00:00 93 06/26/18 00:00 97.6 94 25 108/61 (77) 94 94 06/26/18 00:00 Venturi Mask 6.0 06/25/18 23:00 101 22 106/63 (09) 94 101 General Appearance: other - not in distress Neck: other - neck has neck brace on Cardiovascular: normal rate, regular rhythm Respiratory/Chest: other - rhonchi bilaterally Abdomen: non tender, soft Extremities: other - no clubbing cyanosis or edema Intake and Output 06/25/18 06/26/18 19:00 07:00 Intake Total 1100 ml 2225.0 ml Output Total 800 ml 1135 ml Balance 300 ml 1090.0 ml Intake Oral 300 ml 840 ml IV Total 800 ml 1385.0 ml Output Urine Total 650 ml 1135 ml Estimated Blood Loss 150 ml Laboratory Tests Test 06/26/18 04:00 06/26/18 09:07 06/26/18 09:50 06/26/18 15:40 White Blood Count 25.5 K/UL (4.8-10.8) *H Red Blood Count 4.78 M/UL (4.70-6.10) Hemoglobin 14.9 G/DL (14.2-18.0) Hematocrit 43.2 % (42.0-52.0) Mean Corpuscular Volume 90 FL (80-99) Mean Corpuscular Hemoglobin 31.1 PG (27.0-31.0) H Mean Corpuscular Hemoglobin Concent 34.4 G/DL (32.0-36.0) Red Cell Distribution Width 12.4 % (11.6-14.8) Platelet Count 302 K/UL (150-450) Mean Platelet Volume 5.9 FL (6.5-10.1) L Neutrophils (%) (Auto) % (45.0-75.0) Lymphocytes (%) (Auto) % (20.0-45.0) Monocytes (%) (Auto) % (1.0-10.0) Eosinophils (%) (Auto) % (0.0-3.0) Basophils (%) (Auto) % (0.0-2.0) Differential Total Cells Counted 100 Neutrophils % (Manual) 78 % (45-75) H Lymphocytes % (Manual) 6 % (20-45) L Monocytes % (Manual) 4 % (1-10) Eosinophils % (Manual) 0 % (0-3) Basophils % (Manual) 0 % (0-2) Band Neutrophils 12 % (0-8) H Platelet Estimate Adequate Platelet Morphology Normal Red Blood Cell Morphology Normal Sodium Level 137 MMOL/L (136-145) Potassium Level 4.5 MMOL/L (3.5-5.1) Chloride Level 101 MMOL/L (98-107) Carbon Dioxide Level 25 MMOL/L (21-32) Anion Gap 11 mmol/L (5-15) Blood Urea Nitrogen 23 mg/dL (7-18) H Creatinine 1.4 MG/DL (0.55-1.30) H Estimat Glomerular Filtration Rate 55.8 mL/min (>60) Glucose Level 143 MG/DL (74-106) H Calcium Level 8.5 MG/DL (8.5-10.1) Total Bilirubin 1.1 MG/DL (0.2-1.0) H Direct Bilirubin 0.2 MG/DL (0.0-0.3) Aspartate Amino Transf (AST/SGOT) 24 U/L (15-37) Alanine Aminotransferase (ALT/SGPT) 28 U/L (12-78) Alkaline Phosphatase 62 U/L (46-116) Troponin I 0.006 ng/mL (0.000-0.056) 0.000 ng/mL (0.000-0.056) 0.000 ng/mL (0.000-0.056) Total Protein 6.1 G/DL (6.4-8.2) L Albumin 3.3 G/DL (3.4-5.0) L Globulin 2.8 g/dL Albumin/Globulin Ratio 1.2 (1.0-2.7) Arterial Blood pH 7.398 (7.350-7.450) Arterial Blood Partial Pressure CO2 36.9 mmHg (35.0-45.0) Arterial Blood Partial Pressure O2 83.0 mmHg (75.0-100.0) Arterial Blood HCO3 22.2 mmol/L (22.0-26.0) Arterial Blood Oxygen Saturation 96.4 % (95-100) Arterial Blood Base Excess -2.1 (-2-2) L Sae Test Positive Test 06/26/18 18:59 06/26/18 21:45 Vancomycin Level Trough 7.5 ug/mL (5.0-12.0) Troponin I 0.000 ng/mL (0.000-0.056) Objective Kd Baca MD Jun 26, 2018 22:47
[2018-06-27] VITALS: BP 108/61
[2018-06-27] MEDS: Hydromorphone 0.5mg/0.5ml inj IVP PRN ×4 (00:01→23:59)
[2018-06-27] MEDS: Ipratropium 0.02% Inh Soln 2.5ml UD HHN SCH ×6 (03:15→23:30)
[2018-06-27] MEDS: Vancomycin 1gm/D5W 275ml IVPB SCH ×6 (03:53→12:25)
[2018-06-27 04:00] VITALS: BP 108/63
[2018-06-27] MEDS: Piperacillin/Tazobactam 3.375 GM in D5W 110 ML IVPB SCH ×4 (06:41→14:43)
[2018-06-27 06:47] LABS: HEMATOCRIT 35.8 % (42.0-52.0); HEMOGLOBIN 12.1 G/DL (14.2-18.0); MEAN CORPUSCULAR VOLUME 91 FL (80-99); PLATELET COUNT 221 K/UL (150-450); RED BLOOD COUNT 3.93 M/UL (4.70-6.10); RED CELL DISTRIBUTION WIDTH 12.2 % (11.6-14.8); WHITE BLOOD COUNT 13.8 K/UL (4.8-10.8)
[2018-06-27 07:02] LABS: ALANINE AMINOTRANSFERASE 21 U/L (12-78); ALBUMIN 2.8 G/DL (3.4-5.0); ALBUMIN/GLOBULIN RATIO 0.9 (1.0-2.7); ALKALINE PHOSPHATASE 48 U/L (46-116); ANION GAP 7 mmol/L (5-15); ASPARTATE AMINO TRANSFERASE 27 U/L (15-37); BILIRUBIN,TOTAL 0.8 MG/DL (0.2-1.0); BLOOD UREA NITROGEN 12 mg/dL (7-18); CALCIUM 8.1 MG/DL (8.5-10.1); CARBON DIOXIDE 28 MMOL/L (21-32); CHLORIDE 107 MMOL/L (98-107); POTASSIUM 3.8 MMOL/L (3.5-5.1); SODIUM 142 MMOL/L (136-145)
--- NOTE | 2018-06-27 07:20 | NUR ---
NURSE NOTES: Report received from outgoing RN, rounds made. Patient laying on right side with neck brace in place. Patient arousable, slightly drowsy, oriented x4, calm, states, "my pain is okay right now". IVF and Zosyn infusing to left hand, site asymptomatic. Bilateral SCDs on. Encouraged IS with splint to anterior neck with coughing, patient verbalized understanding. Denies SOB/NV. Call light in reach, urinal at bedside, bed in lowest position. Will continue to assess.
--- NOTE | 2018-06-27 07:30 | NUR ---
HAND-OFF: Report given to JORGITO Foote.
[2018-06-27 08:00] VITALS: BP 117/73
[2018-06-27] MEDS: Docusate Sod/Senna tab ORAL SCH ×2 (08:21→17:22)
--- NOTE | 2018-06-27 08:25 | NUR ---
NURSE NOTES: Patient complains of headache and anterior neck pain 02/02, reviewed PRN medications with patient, medicated with Dilaudid 0.5 mg IVP, will offer PO pain medication if not tolerating Dilaudid. Encouraged relaxation technique with focused breathing. Will continue to assess pain.
[2018-06-27] MEDS ORDERED: NS 275ml ONE (09:03)
[2018-06-27] MEDS ORDERED: Tubing IV Secondary IV ONE (09:03)
--- NOTE | 2018-06-27 10:30 | NUR ---
NURSE NOTES: Spoke with Dr. Youngblood regarding updates on patient current status, vitals, lab values, pain level/medications, IVF/rate, activity, IS use, diet/PO intake. Orders received to decrease IVF to 50 ml/hr, encourage PO intake, IS, ambulate in halls. See orders. Will update patient on new orders.
[2018-06-27] MEDS: HYDROcodone/Acetamin 7.5/325 tab ORAL PRN ×2 (11:04→14:41)
--- NOTE | 2018-06-27 11:30 | NUR ---
PT Note Attempted to see patient for treatment but was not available.
[2018-06-27 12:00] VITALS: BP 115/76
--- NOTE | 2018-06-27 13:15 | NUR ---
NURSE NOTES: Patient received hard cervical collar from [facility], placed at bedside, patient sleeping at this time with soft cervical collar.
--- NOTE | 2018-06-27 15:23 | Consultation ---
History of Present Illness General Date patient seen: Jun 27, 2018 Time patient seen: 15:21 Present Illness Allergies: Coded Allergies: No Known Allergies (Unverified , 06/24/18) Medication History Scheduled No Known Medications* (NKM - No Known Medications*), 0 ., (Reported) Patient History Healthcare decision maker ANDER- Resuscitation status Full Code Advanced Directive on File No Review of Systems Constitutional: Reports: no symptoms Eye: Reports: no symptoms ENT: Reports: no symptoms ROS Narrative noshortness of breath no chills walking with nurses Physical Exam General Appearance: WD/WN Neck: other - hasa a neck brace Respiratory/Chest: decreased breath sounds, other - rhonchi' Cardiovascular/Chest: normal rate, no JVD Last 24 Hour Vital Signs Date Time Temp Pulse Resp B/P (MAP) Pulse Ox O2 Delivery O2 Flow Rate FiO2 06/27/18 12:00 97.9 82 18 115/76 (89) 99 06/27/18 10:33 72 18 99 Nasal Cannula 2.0 28 06/27/18 10:30 76 18 98 Nasal Cannula 2.0 28 06/27/18 09:00 Nasal Cannula 3.0 06/27/18 08:00 97.8 84 18 117/73 (88) 96 06/27/18 07:25 Nasal Cannula 2.0 06/27/18 07:25 Nasal Cannula 2.0 28 06/27/18 07:25 Nasal Cannula 2.0 28 06/27/18 07:25 98 Nasal Cannula 2.0 28 06/27/18 04:00 99.4 96 18 108/63 (78) 97 06/27/18 03:28 76 20 99 Nasal Cannula 2.0 28 06/27/18 03:15 68 20 99 Nasal Cannula 2.0 28 06/27/18 00:00 98.8 104 18 108/61 (77) 95 06/26/18 23:59 Nasal Cannula 06/26/18 23:59 Nasal Cannula 06/26/18 21:06 99 Nasal Cannula 2.0 28 06/26/18 21:06 Nasal Cannula 2.0 28 06/26/18 21:05 74 20 99 Nasal Cannula 2.0 06/26/18 21:00 Nasal Cannula 2.0 06/26/18 20:51 70 20 98 Nasal Cannula 2.0 06/26/18 20:00 99.3 80 18 115/80 (92) 94 06/26/18 15:22 73 18 99 Nasal Cannula 2.0 28 Intake and Output 06/26/18 06/27/18 19:00 07:00 Intake Total 540 ml 568.708 ml Output Total 2910 ml 700 ml Balance -2370 ml -131.292 ml Intake Oral 240 ml IV Total 300 ml 568.708 ml Output Urine Total 2910 ml 700 ml # Bowel Movements 2 Laboratory Tests Test 06/26/18 15:40 06/26/18 18:59 06/26/18 21:45 06/27/18 04:45 Troponin I 0.000 ng/mL (0.000-0.056) 0.000 ng/mL (0.000-0.056) Vancomycin Level Trough 7.5 ug/mL (5.0-12.0) White Blood Count 13.8 K/UL (4.8-10.8) H Red Blood Count 3.93 M/UL (4.70-6.10) L Hemoglobin 12.1 G/DL (14.2-18.0) L Hematocrit 35.8 % (42.0-52.0) L Mean Corpuscular Volume 91 FL (80-99) Mean Corpuscular Hemoglobin 30.7 PG (27.0-31.0) Mean Corpuscular Hemoglobin Concent 33.7 G/DL (32.0-36.0) Red Cell Distribution Width 12.2 % (11.6-14.8) Platelet Count 221 K/UL (150-450) Mean Platelet Volume 5.7 FL (6.5-10.1) L Neutrophils (%) (Auto) % (45.0-75.0) Lymphocytes (%) (Auto) % (20.0-45.0) Monocytes (%) (Auto) % (1.0-10.0) Eosinophils (%) (Auto) % (0.0-3.0) Basophils (%) (Auto) % (0.0-2.0) Differential Total Cells Counted 100 Neutrophils % (Manual) 88 % (45-75) H Lymphocytes % (Manual) 6 % (20-45) L Monocytes % (Manual) 6 % (1-10) Eosinophils % (Manual) 0 % (0-3) Basophils % (Manual) 0 % (0-2) Band Neutrophils 0 % (0-8) Platelet Estimate Adequate Platelet Morphology Normal Red Blood Cell Morphology Normal Sodium Level 142 MMOL/L (136-145) Potassium Level 3.8 MMOL/L (3.5-5.1) Chloride Level 107 MMOL/L (98-107) Carbon Dioxide Level 28 MMOL/L (21-32) Anion Gap 7 mmol/L (5-15) Blood Urea Nitrogen 12 mg/dL (7-18) Creatinine 1.0 MG/DL (0.55-1.30) Estimat Glomerular Filtration Rate > 60 mL/min (>60) Glucose Level 116 MG/DL (74-106) H Calcium Level 8.1 MG/DL (8.5-10.1) L Total Bilirubin 0.8 MG/DL (0.2-1.0) Aspartate Amino Transf (AST/SGOT) 27 U/L (15-37) Alanine Aminotransferase (ALT/SGPT) 21 U/L (12-78) Alkaline Phosphatase 48 U/L (46-116) Total Protein 6.0 G/DL (6.4-8.2) L Albumin 2.8 G/DL (3.4-5.0) L Globulin 3.2 g/dL Albumin/Globulin Ratio 0.9 (1.0-2.7) L Height (Feet): 5 Height (Inches): 11.00 Weight (Pounds): 178 Medications Current Medications Medications (Trade) Dose Ordered Sig/Thom Route PRN Reason Start Time Stop Time Status Last Admin Dose Admin Acetaminophen (Tylenol) 650 mg Q4H PRN ORAL headache or temp>101 06/26/18 18:00 07/25/18 13:59 Acetaminophen/ Hydrocodone Bitart ([place] 5/325) 1 tab Q3H PRN ORAL Mild Pain (Pain Scale 1-3) 06/26/18 18:00 07/02/18 17:59 Acetaminophen/ Hydrocodone Bitart ([place] 7.5/325) 1 tab Q3H PRN ORAL Moderate Pain (Pain Scale 4-6) 06/26/18 18:00 07/02/18 17:59 06/27/18 14:41 Acetaminophen/ Hydrocodone Bitart ([place] 7.5/325) 2 tab Q3H PRN ORAL Severe Pain (Pain Scale 7-10) 06/26/18 18:00 07/02/18 17:59 06/26/18 21:54 Hydromorphone HCl (Dilaudid) 0.5 mg Q2H PRN IVP Breakthrough Pain 06/26/18 18:00 07/03/18 17:59 06/27/18 08:24 Ipratropium [place] (Atrovent) 500 mcg Q4HRT HHN 06/26/18 19:00 06/30/18 22:59 06/27/18 10:32 Magnesium Hydroxide (Mom) 30 ml QIDPRN PRN ORAL Constipation 06/26/18 18:00 07/26/18 17:59 Ondansetron HCl (Zofran) 4 mg Q6H PRN IVP Nausea & Vomiting 06/26/18 18:00 07/25/18 17:59 Piperacillin Sod/ Tazobactam Sod 3.375 gm/Dextrose 110 ml @ 27.5 mls/hr Q8H IVPB 06/26/18 23:00 07/02/18 22:59 06/27/18 14:43 Senna/Docusate Sodium (Grisel-Colace) 1 tab TWICE A DAY ORAL 06/26/18 18:00 07/25/18 17:59 06/27/18 08:21 Sodium Chloride 1,000 ml @ 50 mls/hr Q20H IV 06/27/18 13:05 07/27/18 13:04 Vancomycin HCl (Vanco rx to dose) 1 ea DAILY PRN MISC PER PHARMACY 06/26/18 18:00 07/26/18 17:59 Vancomycin HCl 1 gm/Dextrose 275 ml @ 183.708 mls/hr Q8HR@0400,1200,2000 IVPB 06/26/18 20:00 07/01/18 19:59 06/27/18 12:25 Assessment/Plan Status Narrative ct chest: Impression: Bilateral diffuse and extensive, right greater than left, parenchymal opacities, as described. Findings most likely represent pneumonia, and distribution likely reflects suspected clinical history of aspiration pneumonia. Pulmonary airspace edema also a possibility but deemed less likely. Correlation with clinical findings is recommended No findings responding to apparent masslike opacity on previous day's chest radiograph; that finding has resolved on most recent chest radiograph and most likely reflected some atelectasis that has since resolved Note unusual variant anatomy of a left middle lobe Post surgical changes of the upper thoracic and lower cervical spine. Gas bubbles in the right supraclavicular region probably related to the prior surgical exposure Incidental finding of right lobe liver cyst Granulomatous calcification in the right middle lobe, presumably postinflammatory, may reflect old granulomatous disease The CT scanner at [facility] is accredited by the [employer] and the scans are performed using protocols designed to limit radiation exposure to as low as reasonably achievable to attain images of sufficient resolution adequate for diagnostic evaluation. impression: s/p complex anterior cervical spine fusion c5-t1 doing well ambulating wiht walker aspiration pneumonia Assessment/Plan plan dc vanco ziosyn and as odf tommorrow switch for 7 days of levoflozxin and flagyl needs oprobiotic Kd Baca MD Jun 27, 2018 15:23
[2018-06-27 16:00] VITALS: BP 116/77
--- NOTE | 2018-06-27 18:52 | General Progress Note ---
Progress Note Progress Note S/ Doing very well. Improved sensation and strength in the right arm. Incisional pain under control. No shotness of breath. I.S. to 2 liters. Ambulated with PT this am and with nursing and myself this pm. Tolerating po. No chocking. No tongue pain. O/ Vs Last 24 Hour Vital Signs Date Time Temp Pulse Resp B/P (MAP) Pulse Ox O2 Delivery O2 Flow Rate FiO2 06/27/18 16:00 98.2 76 18 116/77 (90) 90 06/27/18 15:22 71 16 96 Room Air 21 06/27/18 15:16 78 16 95 Room Air 21 06/27/18 12:00 97.9 82 18 115/76 (89) 99 06/27/18 10:33 72 18 99 Nasal Cannula 2.0 28 06/27/18 10:30 76 18 98 Nasal Cannula 2.0 28 06/27/18 09:00 Nasal Cannula 3.0 06/27/18 08:00 97.8 84 18 117/73 (88) 96 06/27/18 07:25 Nasal Cannula 2.0 28 06/27/18 07:25 Nasal Cannula 2.0 28 06/27/18 07:25 Nasal Cannula 2.0 28 06/27/18 07:25 98 Nasal Cannula 2.0 28 06/27/18 04:00 99.4 96 18 108/63 (78) 97 06/27/18 03:28 76 20 99 Nasal Cannula 2.0 28 06/27/18 03:15 68 20 99 Nasal Cannula 2.0 28 06/27/18 00:00 98.8 104 18 108/61 (77) 95 06/26/18 23:59 Nasal Cannula 06/26/18 23:59 Nasal Cannula 06/26/18 21:06 99 Nasal Cannula 2.0 28 06/26/18 21:06 Nasal Cannula 2.0 28 06/26/18 21:05 74 20 99 Nasal Cannula 2.0 28 06/26/18 21:00 Nasal Cannula 2.0 06/26/18 20:51 70 20 98 Nasal Cannula 2.0 28 06/26/18 20:00 99.3 80 18 115/80 (92) 94 Alert and oriented x 4. Speech is clear. Voice is normal Incision dressing s changed and the incisions are clean dry and intact. right upper extremity strength equal to left at 5/5 Normal sensation. Lower back pain at baseline Cervical hard collar adjusted Right-sided Tongue well healed with normal movement. Laboratory Tests Test 06/26/18 18:59 06/26/18 21:45 06/27/18 04:45 Vancomycin Level Trough 7.5 ug/mL (5.0-12.0) Troponin I 0.000 ng/mL (0.000-0.056) White Blood Count 13.8 K/UL (4.8-10.8) H Red Blood Count 3.93 M/UL (4.70-6.10) L Hemoglobin 12.1 G/DL (14.2-18.0) L Hematocrit 35.8 % (42.0-52.0) L Mean Corpuscular Volume 91 FL (80-99) Mean Corpuscular Hemoglobin 30.7 PG (27.0-31.0) Mean Corpuscular Hemoglobin Concent 33.7 G/DL (32.0-36.0) Red Cell Distribution Width 12.2 % (11.6-14.8) Platelet Count 221 K/UL (150-450) Mean Platelet Volume 5.7 FL (6.5-10.1) L Neutrophils (%) (Auto) % (45.0-75.0) Lymphocytes (%) (Auto) % (20.0-45.0) Monocytes (%) (Auto) % (1.0-10.0) Eosinophils (%) (Auto) % (0.0-3.0) Basophils (%) (Auto) % (0.0-2.0) Differential Total Cells Counted 100 Neutrophils % (Manual) 88 % (45-75) H Lymphocytes % (Manual) 6 % (20-45) L Monocytes % (Manual) 6 % (1-10) Eosinophils % (Manual) 0 % (0-3) Basophils % (Manual) 0 % (0-2) Band Neutrophils 0 % (0-8) Platelet Estimate Adequate Platelet Morphology Normal Red Blood Cell Morphology Normal Sodium Level 142 MMOL/L (136-145) Potassium Level 3.8 MMOL/L (3.5-5.1) Chloride Level 107 MMOL/L (98-107) Carbon Dioxide Level 28 MMOL/L (21-32) Anion Gap 7 mmol/L (5-15) Blood Urea Nitrogen 12 mg/dL (7-18) Creatinine 1.0 MG/DL (0.55-1.30) Estimat Glomerular Filtration Rate > 60 mL/min (>60) Glucose Level 116 MG/DL (74-106) H Calcium Level 8.1 MG/DL (8.5-10.1) L Total Bilirubin 0.8 MG/DL (0.2-1.0) Aspartate Amino Transf (AST/SGOT) 27 U/L (15-37) Alanine Aminotransferase (ALT/SGPT) 21 U/L (12-78) Alkaline Phosphatase 48 U/L (46-116) Total Protein 6.0 G/DL (6.4-8.2) L Albumin 2.8 G/DL (3.4-5.0) L Globulin 3.2 g/dL Albumin/Globulin Ratio 0.9 (1.0-2.7) L doing well PT D/c instructions reviewed with pt his and nursing staff in detail. Prema Youngblood MD Jun 27, 2018 18:52
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
--- NOTE | 2018-06-27 19:45 | NUR ---
HAND-OFF: Report given to Gabriel BULL.
--- NOTE | 2018-06-27 19:54 | NUR ---
NURSE NOTES: Received report from Dary BULL. Pt A&O x4 laying semi-fowlers in bed. No signs of pain or distress. IV site dry & intact. Surgical dressing C/D/I. IS at bedside. Call light in reach, bed in lowest position, side rails up x2. Will continue to monitor pt.
[2018-06-27 20:00] VITALS: BP 112/82
[2018-06-27] MEDS ORDERED: Piperacillin/Tazobactam 3.375 GM in D5W 110 ML IVPB SCH (23:00)
[2018-06-28] VITALS: BP 118/65
[2018-06-28] MEDS: Ipratropium 0.02% Inh Soln 2.5ml UD HHN SCH ×3 (03:00→10:51)
--- NOTE | 2018-06-28 03:30 | Discharge Summary ---
DATE OF ADMISSION: 06/25/2018 DATE OF DISCHARGE: 06/28/2018 DISCHARGE DIAGNOSES: 1. Status post anterior cervical diskectomy, fusion, stabilization, decompression of spinal cord, C5 through T1. 2. Aspiration pneumonia. HISTORY OF PRESENT ILLNESS: Please refer to the chart for detailed History and Physical. HOSPITAL COURSE: The patient was admitted on 06/25/2018. He underwent a right-sided retropharyngeal approach with anterior cervical diskectomy, fusion, stabilization from C5 through T1. He was extubated without difficulty, but there was evidence of laceration on the right side of the tongue. This laceration was fully repaired. The patient was fully examined and followed in the recovery room. There was evidence of tachypnea. The x-ray in the recovery room was significant for possible aspiration. precaution, the patient was transferred to the intensive care unit. He had cardiological workup along with additional imaging studies including CT scan of the chest. There was no evidence of mass. There was evidence of bronchoalveolar process consistent with infiltration and aspiration. The patient was started on intravenous antibiotics. His white count almost normalized from 25,000 to 13,000. He has no shortness of breath. He has been using incentive spirometer with 2 L of respiratory and inspiration volumes without any chest pain. He has been ambulating with significant improvement in his right-sided weakness that he was experiencing preoperatively. He is being discharged home with appropriate instructions and prescriptions including Flagyl, Levaquin, and pain medications. DISPOSITION: Home. DISCHARGE INSTRUCTIONS: Regarding activity, the patient was instructed to wear a cervical hard collar in bed and out of bed for the first 2 weeks. He was asked to wear the hard collar when out of bed after that and soft collar in bed for the first 2 weeks. In case of fever more than 101 degrees, chills, drainage from the incision, worsening cough, or chest pain, the patient was asked to call Dr. Youngblood or go to the nearest emergency room. He was asked not to do any lifting, bending, or twisting until cleared. FOLLOWUP: Follow up with Dr. Youngblood in 2 weeks and also follow up with Dr. Baca, Internal Medicine. MEDICATIONS: Levaquin, Flagyl, Percocet as instructed, and also the patient was asked to take probiotics during use of the antibiotics to prevent diarrhea. CONSULTATIONS: Included physical therapy and Internal Medicine, Dr. Kd Baca. Prema Youngblood M.D. DR: MICHAEL JOB#: [id number] CC:
[2018-06-28 04:00] VITALS: BP 111/70
[2018-06-28] MEDS: HYDROcodone/Acetamin 7.5/325 tab ORAL PRN ×2 (04:03→12:29)
[2018-06-28 06:49] LABS: BASOPHILS % (AUTO) 0.6 % (0.0-2.0); EOSINOPHILS % (AUTO) 0.7 % (0.0-3.0); HEMATOCRIT 33.1 % (42.0-52.0); HEMOGLOBIN 11.4 G/DL (14.2-18.0); LYMPHOCYTES % (AUTO) 13.9 % (20.0-45.0); MEAN CORPUSCULAR VOLUME 91 FL (80-99); MONOCYTES % (AUTO) 8.7 % (1.0-10.0); NEUTROPHILS % (AUTO) 76.2 % (45.0-75.0); PLATELET COUNT 223 K/UL (150-450); RED BLOOD COUNT 3.66 M/UL (4.70-6.10); RED CELL DISTRIBUTION WIDTH 12.1 % (11.6-14.8); WHITE BLOOD COUNT 11.4 K/UL (4.8-10.8)
[2018-06-28 06:59] LABS: ANION GAP 6 mmol/L (5-15); BLOOD UREA NITROGEN 13 mg/dL (7-18); CALCIUM 8.4 MG/DL (8.5-10.1); CARBON DIOXIDE 28 MMOL/L (21-32); CHLORIDE 107 MMOL/L (98-107); CREATININE 1.1 MG/DL (0.55-1.30); POTASSIUM 3.6 MMOL/L (3.5-5.1); SODIUM 141 MMOL/L (136-145)
[2018-06-28 07:02] LABS: ALANINE AMINOTRANSFERASE 22 U/L (12-78); ALBUMIN 2.6 G/DL (3.4-5.0); ALBUMIN/GLOBULIN RATIO 0.8 (1.0-2.7); ALKALINE PHOSPHATASE 50 U/L (46-116); ANION GAP 8 mmol/L (5-15); ASPARTATE AMINO TRANSFERASE 20 U/L (15-37); BILIRUBIN,TOTAL 0.8 MG/DL (0.2-1.0); BLOOD UREA NITROGEN 10 mg/dL (7-18); CALCIUM 8.4 MG/DL (8.5-10.1); CARBON DIOXIDE 27 MMOL/L (21-32); CHLORIDE 106 MMOL/L (98-107); CREATININE 1.1 MG/DL (0.55-1.30); POTASSIUM 3.6 MMOL/L (3.5-5.1); SODIUM 141 MMOL/L (136-145)
--- NOTE | 2018-06-28 07:30 | NUR ---
NURSE NOTES: Report received from outgoing RN, rounds made. Patient sleeping right side, semi-fowlers position in bed. O2 3L per NC in place, no distress noted. Call light in reach, bed in lowest position. Will continue to monitor.
--- NOTE | 2018-06-28 07:33 | NUR ---
HAND-OFF: Report given to Dary BULL. Pt is stable.
[2018-06-28 08:00] VITALS: BP 112/73
[2018-06-28] MEDS ORDERED: metroNIDAZOLE 500mg tab ORAL SCH ×2 (09:00)
[2018-06-28] MEDS ORDERED: Levofloxacin 500mg tab ORAL SCH (09:00)
[2018-06-28] MEDS: Docusate Sod/Senna tab ORAL SCH (09:48)
--- NOTE | 2018-06-28 10:04 | Diagnostic Imaging Report ---
EXAM: XR Chest, 1 View CLINICAL HISTORY: ABN CHST TECHNIQUE: Frontal view of the chest. COMPARISON: Chest x-ray 06/26/18 852 FINDINGS: Lungs: Bilateral airspace opacities, worsening in the right lung. Pleural space: New tiny right pleural effusion. No pneumothorax. Heart: Unremarkable. No cardiomegaly. Mediastinum: Unremarkable. Bones/joints: Lower cervical spine hardware. IMPRESSION: 1. Bilateral airspace opacities, worsening in the right lung. 2. New tiny right pleural effusion.
--- NOTE | 2018-06-28 11:00 | NUR ---
NURSE NOTES: Patient up ambulating with hard cervical collar and RW with PT. O2 saturations on RA 97%. Encouraged IS. Patient advanced to Post Cervical Diet, tolerated well. Voiding in bathroom. Last BM yesterday. Encouraged PO intake, denies NV. CMS+ to all extremities, weakness to right arm with hand grasps and slight numbness. Anterior neck dressing and left hip intact. Will continue to monitor.
[2018-06-28 12:00] VITALS: BP 118/70
--- NOTE | 2018-06-28 12:30 | NUR ---
NURSE NOTES: Portable chest X-RAY done this morning. Results called to Dr. Youngblood, orders to hold discharge and notify Dr. Baca with results. Results called to Dr. Baca. Orders received for okay to discharge. Dr. Youngblood notified by RN, orders received for okay to discharge. Facesheet faxed as requested. See orders.
[2018-06-28] MEDS ORDERED: FLAGYL500 MG ORAL (13:59)
[2018-06-28] MEDS ORDERED: METRONIDAZOLE500 MG ORAL (14:00)
[2018-06-28] MEDS ORDERED: LEVAQUIN500 MG ORAL (14:01)
[2018-06-28] MEDS ORDERED: PROBIOTIC1 EAC5 PO (14:03)
[2018-06-28] MEDS ORDERED: PERCOCET 10-321 EAC1 PO (14:05)
--- NOTE | 2018-06-28 14:50 | NUR ---
NURSE NOTES: Discharge instructions and prescriptions x2 reviewed with patient and at bedside. Verbalized understanding. IV heplock discontinued. All belongings, prescriptions x2, discharge instructions, soft cervical collar sent home with patient. Patient transported down for discharge wearing hard cervical collar via wheelchair, stable condition. Patient discharged home at 1450.
--- NOTE | 2018-06-30 14:20 | Diagnostic Imaging Report ---
APPROVED REPORT CPT Code: 76456 Present Symptoms BILATERAL: Imaging reveals a patent deep venous system bilaterally. There is no evidence of thrombus within the femoral, popliteal or tibial segments. The greater saphenous veins are also within normal limits. Doppler indicates normal spontaneous flow within these segments.
--- NOTE | 2018-07-11 16:28 | Cardiology Report ---
APPROVED REPORT EKG Measurement Heart [id number] Sinus tachycardia Right atrial enlargement Rightward axis Borderline ECG
== END 2018-06-28 14:55 | disposition home or self-care (01) | DRG 471 ==
LOC: SDSOVERFLO 05:46 → ICU 15:29 → 3E 06-26 16:59
PROC: 0RT50ZZ Resection of Cervicothoracic Vertebral Disc, Open Approach (ICD-10-PCS; principal; 2018-06-25 07:30)
PROC: 0RG20A0 Fusion of 2 or more Cervical Vertebral Joints with Interbody Fusion Device, Anterior Approach, Anterior Column, Open Approach (ICD-10-PCS; principal; 2018-06-25 07:30)
PROC: 0RT30ZZ Resection of Cervical Vertebral Disc, Open Approach (ICD-10-PCS; principal; 2018-06-25 07:30)
PROC: 0RG40A0 Fusion of Cervicothoracic Vertebral Joint with Interbody Fusion Device, Anterior Approach, Anterior Column, Open Approach (ICD-10-PCS; principal; 2018-06-25 07:30)
PROC: 0QB33ZZ Excision of Left Pelvic Bone, Percutaneous Approach (ICD-10-PCS; principal; 2018-06-25 07:30)
PROC: 4A11X4G Monitoring of Peripheral Nervous Electrical Activity, Intraoperative, External Approach (ICD-10-PCS; principal; 2018-06-25 07:30)
PROC: 0CQ7XZZ Repair Tongue, External Approach (ICD-10-PCS; principal; 2018-06-25 07:30)
DX: M50.022 Cervical disc disorder at C5-C6 level with myelopathy (principal); J69.0 Pneumonitis due to inhalation of food and vomit; M51.04 Intervertebral disc disorders with myelopathy, thoracic region; K91.72 Accidental puncture and laceration of a digestive system organ or structure during other procedure; D72.829 Elevated white blood cell count, unspecified; R09.02 Hypoxemia
CPT/HCPCS: 36415; 36600; 71045; 71250; 72040; 76000; 80048; 80053; 80202; 82248; 82803; 84484; 85007; 85025; 86850; 86900; 86901; 87081; 93005; 93306; 93970; 94003; 94150; 94640; 94664; 94760; C9399; J2405; J2710